=== PATIENT | male | born 1980 | race Caucasian/White ===

== ENCOUNTER 2017-08-02 12:45 | Emergency (ER) | payer MEDICARE, OTHER ==
[~2017-08-02] VITALS: Ht 177.8 cm; Wt 81.5 kg
[~2017-08-02 12:45] MED LIST: ABAC1TAB PO; ACYC800T57 PO; CHOL10009 PO; FLUO10TA PO; GABA400C14 PO; LORA-441 PO; MARA150T4 PO; [UNRECOGNIZED DRUG - CODE] PO
[2017-08-02 13:21] VITALS: Ht 177.8 cm; Wt 81.5 kg
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
--- NOTE | 2017-08-02 16:19 | RADRPT ---
PROCEDURE: XR Right Hand CLINICAL INDICATION: Injury/pain TECHNIQUE: PA, oblique, and lateral radiographs were submitted. COMPARISON: None FINDINGS: Osseous structures: appear well mineralized and intact with no fracture or destructive process iden tified. Joint spaces: are well maintained, with no significant spurring, erosion or joint effusion evident. Soft tissues: appear unremarkable. IMPRESSION: Unremarkable right hand. Physician Darrick Date Time Electronically viewed and signed by Physician Darrick on 08/02/2017 16:19 /
--- NOTE | 2017-08-02 16:19 | RADRPT ---
PROCEDURE: XR Right Wrist CLINICAL INDICATION: Injury/pain TECHNIQUE: 4 views were submitted. COMPARISON: None FINDINGS: Osseous structures: appear well mineralized and intact with no fracture or destructive process iden tified. Joint spaces: are well maintained with no significant erosions or spurring identified. Soft tissues: appear unremarkable. IMPRESSION: Unremarkable right wrist. Physician Darrick Date Time Electronically viewed and signed by Theodore Dos Santos Physician on 08/02/2017 16:19 /
[2017-08-02] MEDS ORDERED: TRAM50TA2 PO (16:32)
[2017-08-02] MEDS ORDERED: IBUP800T25 PO (16:32)
== END 2017-08-02 16:45 | disposition home or self-care (01) ==
LOC: FTE 12:45
DX: S63.91XA Sprain of unspecified part of right wrist and hand, initial encounter (principal); S60.221A Contusion of right hand, initial encounter; W50.0XXA Accidental hit or strike by another person, initial encounter; Y92.9 Unspecified place or not applicable